=== PATIENT | male | born 1990 | race Caucasian/White ===

== ENCOUNTER 2017-01-04 20:37 | Emergency (ER) | payer OTHER ==
[~2017-01-04] VITALS: Ht 167.6 cm; Wt 85.0 kg
[~2017-01-04 20:37] MED LIST: Z.0.NO CURRENT MEDS
[2017-01-04 20:38] VITALS: BP 143/87; PULSE 67; RESP 16; TEMP 98.1; O2SAT 97
[2017-01-04] MEDS ORDERED: IBUPROFEN 800 MG TAB PO ONE (21:00)
--- NOTE | 2017-01-04 21:14 | PD ---
HPI Chief Complaint: Injury Time Seen by Provider: 21:11 Travel History International Travel<30 days: No Contact w/Intl Traveler<30days: No Traveled to known affect area: No History of Present Illness HPI 26-year-old [id number] white male presents to emergency Department with complaints of pain in his right thumb and forearm after turning a [employer]ackle at work tonight. This occurred approximately one hour prior to arrival. He states that he has pain with movement of the thumb. He has some tingling up the forearm. Pain is mild to moderate. No other injuries. [facility] Past Medical History Medical History: Denies Significant Hx Immunizations Current: Yes Tetanus Vaccination: Unknown Influenza Vaccination: No Past Surgical History Surgical History: No Previous Surgery Social History Alcohol Use: Yes (OCCASIONAL) Tobacco Use: Yes Substance Use: No Allergies-Medications (Allergen,Severity, Reaction): Coded Allergies: No Known Allergies (Verified , 01/04/17) Reported Meds & Prescriptions Reported Meds & Active Scripts Active Review of Systems Except as stated in HPI: all other systems reviewed are Neg Physical Exam Narrative GENERAL: This is a well-nourished, well-developed patient, in no apparent distress. SKIN: No rashes, ecchymoses or lesions. Warm and dry. HEAD: Atraumatic. Normocephalic. EYES: PERRL, EOMI, no discharge or injection. No scleral icterus. EARS: Clear NOSE: Nasal turbinates appear normal. THROAT: Mucosa pink and moist. Airway patent. NECK: Trachea midline. supple, moves head freely. LUNGS: Clear to auscultation. CV: Regular in rhythm. ABDOMEN: Soft nontender. EXT: No clubbing cyanosis or edema. Examination the right upper extremity reveals pain in the thumb MCP as well as the base of the first metacarpal. There is no erythema, warmth or edema. He has limited range of motion actively due to pain but has full passive range of motion. He has intact median/ulnar/ radial nerves. No pain in the wrist or anatomical snuffbox. No pain in the index, middle, ring, little finger. Good Refill. Data Data Last Documented VS Vital Signs Date Time Temp Pulse Resp B/P Pulse Ox O2 Delivery O2 Flow Rate FiO2 01/04/17 20:38 98.1 67 16 143/87 97 Room Air Orders Wrist, Complete ([id number]) (01/04/17 20:53) Ice/Cold Pack (01/04/17 20:53) Splint Or Brace Apply/Monitor (01/04/17 20:53) Ibuprofen (Motrin) (01/04/17 21:00) MDM Medical Decision Making Medical Screen Exam Complete: Yes Emergency Medical Condition: Yes Medical Record Reviewed: Yes Interpretation(s) Right wrist: Negative for acute bony injury Differential Diagnosis MDM: High Differential diagnoses: Fracture, sprain, strain, dislocation, contusion, neurovascular injury Narrative Course This is right thumb sprain Patient's given Motrin 800 mg, ice pack, Velcro wrist splint Diagnosis Primary Impression: Sprain of right thumb Qualified Code: S63.601A - Sprain of right thumb, unspecified site of finger, initial encounter Patient Instructions: General Instructions Departure Forms: Tests/Procedures, Work Release Special Instructions: No use of the right hand 5 days. Additional Instructions: Rest. Elevation. Ice for the next few days. Medication as directed. Follow-up with workman's comp in the next 3-5 days. Return to the ER if any problems. Med/Other Pt SpecificInfo: Prescription(s) given Disposition: 01 DISCHARGE HOME Condition: Stable Rafael Gabriel January 04, 2017 21:14
--- NOTE | 2017-01-04 21:39 | RADRPT ---
EXAM DATE/TIME: 01/04/2017 21:01 [facility] COMPARISON: No previous studies available for comparison. INDICATIONS : Twisting injury to right wrist, pain MEDICAL HISTORY : None. SURGICAL HISTORY : None. ENCOUNTER: Initial ACUITY: 1 day PAIN SCORE: 6/10 LOCATION: Right wrist FINDINGS: Three view examination of the right wrist demonstrates no soft tissue swelling, dislocation, or fract ure. The carpal bones are in normal alignment. The joint spaces are maintained. Bony mineralizatio n is normal. CONCLUSION: Unremarkable examination of the right wrist. Rafael Dupont MD on January 04, 2017 at 21:37 Board Certified Radiologist. This report was verified electronically.
== END 2017-01-04 21:38 | disposition home or self-care (01) ==
LOC: NEPK 20:37
DX: S63.601A Unspecified sprain of right thumb, initial encounter (principal); X50.0XXA Overexertion from strenuous movement or load, initial encounter; Y93.89 Activity, other specified; Y99.0 Civilian activity done for income or pay
CPT/HCPCS: 73110; 99283; L3808

== ENCOUNTER 2017-01-09 14:50 | Emergency (ER) | payer SELFPAY ==
[~2017-01-09] VITALS: Ht 165.1 cm; Wt 81.5 kg
[2017-01-09 14:52] VITALS: BP 134/62; PULSE 74; RESP 14; TEMP 97.7; O2SAT 100
--- NOTE | 2017-01-09 15:15 | PD ---
Physical Exam Date Seen by Provider: January 09, 2017 Time Seen by Provider: 15:13 Narrative Pt is a 26 year old male presenting to the ED for medical clearance to return to work. Pt states he sprained his wrist Friday and was told to come back here. No new complaints. VSS, awaiting bed placement. Data Data Last Documented VS Vital Signs Date Time Temp Pulse Resp B/P Pulse Ox O2 Delivery O2 Flow Rate FiO2 01/09/17 14:52 97.7 74 14 134/62 100 MDM Supervised Visit with ZAFAR: Yamilka Camarena January 09, 2017 15:15
--- NOTE | 2017-01-09 16:25 | PD ---
HPI Chief Complaint: Medical Clearance Time Seen by Provider: 16:21 Travel History International Travel<30 days: No Contact w/Intl Traveler<30days: No Traveled to known affect area: No History of Present Illness HPI 26-year-old male presents to the emergency department requesting medical clearance to return back to work after enduring a sprain to his right thumb. He was seen here on January 04 and was told to follow-up with Workmen's Comp. but his work told him to come back to the ER for medical clearance. He has not followed up outpatient. He denies paresthesias, loss of sensation, decreased range of motion, decreased strength to the affected extremity. Has been wearing and wrist splint with good support. Has no other medical complaints. No known allergies. No other modifying factors or associated signs and symptoms. History Past Medical Histgory Medical History: Denies Significant Hx Past Surgical History Surgical History: No Previous Surgery Social History Alcohol Use: Yes (OCCASIONAL) Tobacco Use: Yes Allergies-Medications (Allergen,Severity, Reaction): Coded Allergies: No Known Allergies (Verified , 01/09/17) Reported Meds & Prescriptions Reported Meds & Active Scripts Active No Active Prescriptions or Reported Medications Review of Systems Except as stated in HPI: all other systems reviewed are Neg Physical Exam Narrative GENERAL: Well-nourished, well-developed male patient, in no acute distress; afebrile, nontoxic-appearing SKIN: Warm and dry. HEAD: Atraumatic. Normocephalic. EYES: Pupils equal and round. No scleral icterus. No injection or drainage. ENT: Mucosa pink and moist. Airway patent. NECK: Trachea midline. CARDIOVASCULAR: Regular rate. RESPIRATORY: No accessory muscle use. GASTROINTESTINAL: Rounded. MUSCULOSKELETAL: Right wrist and hand with full range of motion and strength; without erythema, edema, ecchymosis; all fingers with full range of motion. Right upper extremity supple and nontender 2+ radial pulses and sensory intact without erythema or edema. No obvious deformities. No clubbing. No cyanosis. NEUROLOGICAL: Awake and alert. Oriented 3. No obvious cranial nerve deficits. Motor grossly within normal limits. Normal speech. PSYCHIATRIC: Appropriate mood and affect; insight and judgment normal. Data Data Last Documented VS Vital Signs Date Time Temp Pulse Resp B/P Pulse Ox O2 Delivery O2 Flow Rate FiO2 01/09/17 14:52 97.7 74 14 134/62 100 [facility] Medical Screen Exam Complete: Yes Emergency Medical Condition: No Differential Diagnosis Medical clearance, thumb sprain, hand sprain Narrative Course 26-year-old male requesting medical clearance to return back to full duty at work after injuring a right thumb sprain on January 04. He was seen here and an x- ray of the right wrist was unremarkable. Vital signs are stable and the patient is stable for outpatient follow-up and treatment. The patient has no urgent or emergent medical complaints. There is no emergent or urgent medical need at this time. I instructed the patient to follow up with their primary care provider. A medical screening exam was performed: At the time of evaluation the presenting medical condition was determined not to be of an emergent nature. The patient was given the option of receiving additional care, but declined. Patient was given options for additional community resources from which to obtain care. The Patient Has Been advised to seek medical attention for their presenting complaint. The patient has been advised to return to the ER at any time if an emergent condition develops. Primary Impression: Encounter for medical screening examination Scripts No Active Prescriptions or Reported Meds Condition: Stable Yue An January 09, 2017 16:25
== END 2017-01-09 16:34 | disposition left against medical advice (07) ==
LOC: NEPK 14:50
DX: Z02.89 Encounter for other administrative examinations (principal)
CPT/HCPCS: 99281